=== PATIENT | female | born 1975 | race Caucasian/White ===

== ENCOUNTER 2024-09-16 18:24 | Emergency (ER) | payer BC, OTHER ==
[~2024-09-16] VITALS: Ht 165.1 cm; Wt 165.0 kg
[2024-09-16 18:34] VITALS: O2SAT 98
[2024-09-16] MEDS: ACETAMINOPHEN 1000MG/100ML 100 ML IV ONE (19:00)
[2024-09-16 19:43] LABS: BASOPHILS % 0.5 % (0.0-2.0); EOSINOPHILS % 3.3 % (0.0-5.0); HEMATOCRIT. 36.9 % (36.0-48.0); HEMOGLOBIN. 12.4 g/dL (12.0-16.0); LYMPHOCYTES % 37.2 % (20.0-50.0); MEAN PLATELET VOLUME 8.6 fl (7.4-10.4); MONOCYTES % 7.5 % (2.0-8.0); NEUTROPHILS % 51.5 % (40.0-76.0); PLATELET 227 x1000/uL (130-400); RED BLOOD CELL COUNT 4.01 mill/uL (4.2-5.4); RED CELL DISTRIBUTION WIDTH 13.4 % (11.6-14.6)
[2024-09-16 19:57] VITALS: TEMP 36.9
[2024-09-16 19:57] LABS: CREATININE 0.9 mg/dL (0.6-1.0); ETHANOL BLOOD < 10 mg/dL (<10); UREA NITROGEN BLOOD 13 mg/dL (9-23)
[2024-09-16 19:59] LABS: ASPARTATE AMINOTRANSFERASE 53 IU/L (<34); BILIRUBIN DIRECT < 0.1 mg/dL (<=3.0); BILIRUBIN TOTAL 0.4 mg/dL (0.1-1.0); PROTEIN TOTAL 6.9 g/dL (6.0-8.3); TROPONIN I HIGH SENSITIVITY < 4 ng/L (3.0-34)
[2024-09-16] MEDS ORDERED: IBUPROFEN 800MG TABLET PO ONE (20:00)
[2024-09-16] MEDS ORDERED: HYDROCODONE/ACETAMINOPHEN 10/325MG TABLET PO ONE (20:00)
[2024-09-16 20:13] LABS: HCG SCREEN NEGATIVE
[2024-09-16 20:19] LABS: INR 0.9
[2024-09-16 20:22] LABS: *AMPHETAMINES SCREEN URINE NEGATIVE (NEGATIVE); *BARBITURATES SCREEN URINE NEGATIVE (NEGATIVE); *BENZODIAZEPINES SCREEN URINE NEGATIVE (NEGATIVE); *COCAINE SCREEN URINE NEGATIVE (NEGATIVE); CANNABINOID URINE SCREEN NEGATIVE (NEGATIVE); METHADONE URINE SCREEN NEGATIVE (NEGATIVE); OPIATES URINE SCREEN PRESUMPTIVE POSITIVE (NEGATIVE); PHENCYCLIDINE URINE SCREEN NEGATIVE (NEGATIVE)
[2024-09-16 20:23] LABS: ECSTASY MDMA SCREEN URINE NEGATIVE (NEGATIVE)
[2024-09-16] MEDS: NITROGLYCERIN 0.4MG TABLET SL SL PRN (20:47)
[2024-09-16] MEDS: ONDANSETRON HCL 4MG/2ML INJ IV SCH (20:49)
[2024-09-16] MEDS: MORPHINE SULFATE 4 MG/ML INJ (FOR IV/IM USE) IV SCH (20:50)
[2024-09-16 21:26] LABS: TROPONIN I HIGH SENSITIVITY < 4 ng/L (3.0-34)
[2024-09-16] MEDS: KETOROLAC 30MG/ML VIAL IV SCH (22:15)
[2024-09-16] MEDS: IOHEXOL-300 100 ML BOTTLE ONE (22:47)
[2024-09-16] MEDS: ONDANSETRON HCL 4MG/2ML INJ IV ONE (22:50)
[2024-09-16] MEDS: MORPHINE SULFATE 4 MG/ML INJ (FOR IV/IM USE) IV ONE (23:01)
[2024-09-16 23:05] VITALS: BP 117/77; PULSE 62; RESP 12; O2SAT 95
[2024-09-17 09:51] LABS: CLARITY URINE CLEAR (CLEAR); COLOR URINE YELLOW (YELLOW); GLUCOSE URINE NEGATIVE (NEGATIVE); KETONES URINE NEGATIVE (NEGATIVE); LEUKOCYTE ESTERASE URINE NEGATIVE (NEGATIVE); NITRITE URINE NEGATIVE (NEGATIVE); OCCULT BLOOD URINE NEGATIVE (NEGATIVE); PH URINE 7.0 (4.5-8.0); PROTEIN URINE NEGATIVE (NEGATIVE); SPECIFIC GRAVITY URINE 1.005 (1.005-1.030); UROBILINOGEN URINE 0.2 E.U./dL (0.2-1.0)
== END 2024-09-16 23:26 | disposition home or self-care (01) ==
LOC: ER 18:24 → CMPBEDREQ 09-17 19:20
DX: R07.9 Chest pain, unspecified (principal); E06.3 Autoimmune thyroiditis; F41.9 Anxiety disorder, unspecified; Z90.49 Acquired absence of other specified parts of digestive tract; Z98.82 Breast implant status; Z79.899 Other long term (current) drug therapy
CPT/HCPCS: 80076; 80305; 80048; 81003; 80320; 84703; 83690; 85025; 85379; 85610; 84484; 36415; 71045; 71260; 74177; 93005; 96374; 96375; 96376; 99285; Q9967; J1885; J2405; J2270; Z7610 ×2; G0480; J0131